=== PATIENT | male | born 1990 | race Caucasian/White ===

== ENCOUNTER 2017-01-17 17:11 | Observation (INO) | payer BC ==
[~2017-01-17] VITALS: Ht 195.6 cm; Wt 129.9 kg
[~2017-01-17 17:11] MED LIST: ADVIL200 MG; MOTRIN 800800 MG/TAB PO
[2017-01-17 17:45] LABS: BASO % 0.3 % (0.0-2.0); EOS # 0.1 (0.0-0.7); EOS % 0.8 % (0-4.0); GRAN # 6.7 (1.4-6.5); GRAN % 74.1 % (42.2-75.2); HEMOGLOBIN 14.8 g/dl (13.5-18.0); LYMPH # 1.6 (1.2-3.4); LYMPH % 17.3 % (20.0-51.0); MEAN CELL VOLUME 87 fl (80.0-100.0); MEAN CORPUSCULAR HEMOGLOBIN 30 pg (27.0-31.0); MEAN CORPUSCULAR HGB CONC 34 g/dl (33.0-37.0); MEAN PLATELET VOLUME 10.4 fl (7.4-10.4); MONO # 0.7 (0.1-0.6); MONO % 7.3 % (1.7-9.3); PLATELET COUNT 204 K/mm3 (130-400); RED BLOOD COUNT 4.94 M/mm3 (4.20-5.60); REDCELL DISTRIBUTION WIDTH-CV 11.9 % (11.5-14.5); WHITE BLOOD COUNT 9.1 K/mm3 (4.8-10.8)
[2017-01-17 18:04] LABS: ADJUSTED CALCIUM 9.3 mg/dL (8.4-10.2); ALBUMIN 4.4 gm/dL (3.5-5.0); BILIRUBIN,TOTAL 0.8 mg/dL (0.0-1.0); CALCIUM 9.6 mg/dL (8.4-10.2); CREATININE, serum 0.9 mg/dL (0.66-1.25); POTASSIUM 3.8 mmol/L (3.4-5.0); TOTAL PROTEIN 7.7 gm/dL (6.4-8.2)
[2017-01-17 21:00] VITALS: BP 126/60; PULSE 51; TEMP 97.9
[2017-01-17 23:15] VITALS: BP 119/51; PULSE 57; TEMP 97.5
[2017-01-18 03:38] VITALS: BP 114/58; PULSE 54; TEMP 97.7
[2017-01-18 08:03] VITALS: BP 110/62; PULSE 52; TEMP 98.4
[2017-01-18 11:17] VITALS: BP 122/62; PULSE 56; TEMP 98.7
[2017-01-18 17:32] VITALS: BP 130/56; PULSE 56; TEMP 98.3
[2017-01-18 19:32] VITALS: BP 129/65; PULSE 49; TEMP 98.3
[2017-01-18 23:26] VITALS: BP 111/56; PULSE 57; TEMP 97.9
[2017-01-19 03:00] VITALS: BP 117/63; PULSE 57; TEMP 97.4
[2017-01-19 07:49] VITALS: BP 109/59; PULSE 42; TEMP 98
[2017-01-19] MEDS ORDERED: FLONASE NASAL S16 GM NS (10:26)
[2017-01-19] MEDS ORDERED: CLARITIN 1010 MG/TAB PO (10:26)
[2017-01-19] MEDS ORDERED: ANTIVERT 25MG25 MG PO (10:28)
== END 2017-01-19 14:17 | disposition home or self-care (01) ==
LOC: COL.ER 17:11 → MEDICAL 19:27
PROVIDERS: Family Medicine
DX: H81.22 Vestibular neuronitis, left ear (principal); R51 Headache
CPT/HCPCS: A9585; G0378; J1650; J2060; J2550; J7030

== ENCOUNTER 2017-07-19 22:36 | Emergency (ER) | payer OTHER, BC ==
[~2017-07-19] VITALS: Ht 195.6 cm; Wt 118.2 kg
[~2017-07-19 22:36] MED LIST changes: +ANTIVERT 25MG25 MG PO; +CLARITIN 1010 MG/TAB PO; +FLONASE NASAL S16 GM NS
[2017-07-19 22:50] VITALS: BP 117/54; PULSE 68; TEMP 98
== END 2017-07-20 00:13 | disposition home or self-care (01) ==
LOC: COL.ER 22:36
DX: S61.217A Laceration without foreign body of left little finger without damage to nail, initial encounter (principal); Z23 Encounter for immunization; W26.8XXA Contact with other sharp object(s), not elsewhere classified, initial encounter; Y92.89 Other specified places as the place of occurrence of the external cause